=== PATIENT | female | born 1980 | race Caucasian/White ===

== ENCOUNTER 2016-06-29 02:04 | Emergency (ER) | payer OTHER ==
[~2016-06-29 02:04] MED LIST: ACETAMINOPHEN500 M4 PO; ALBUTEROL17 GM INH; ALPRAZOLAM PO; AMITRYPTYLINE PO; AMOXICILLIN PO; AMOXICILLIN500 M1 PO; CLONAZEPAM0.5 MG PO; FIBERCON625 MG PO; FLEXERIL PO; FLEXERIL10 MG PO; IBUPROFEN PO; MAGIC MOUTHWASH; METHADONE PO; MOBIC PO; NAPROSYN500 MG PO; NIX59 ML TOP; NO MEDICATIONS; NON COMPLIANT; ORTHO TRI-7 DAYS X PO; OXYCONTIN20 MG; OYSTER CALCIUM500 MG PO; PHENERGAN25 MG PO; PREDNISONE PO; PRENATAL MULITV1 TAB PO; VIBRAMYCIN100 M1 PO; VICODIN 5/1 TAB 5/50 PO; VISTARIL PO; ZITHROMAX PO; ZOLOFT PO; ZYRTEC PO
== END 2016-06-29 02:06 | disposition home or self-care (01) ==
LOC: CED 02:04
DX: K08.89 Other specified disorders of teeth and supporting structures (principal); I10 Essential (primary) hypertension; B19.20 Unspecified viral hepatitis C without hepatic coma; D64.9 Anemia, unspecified; F41.9 Anxiety disorder, unspecified; F17.210 Nicotine dependence, cigarettes, uncomplicated
CPT/HCPCS: 64400; 99283

== ENCOUNTER 2016-07-16 22:46 | Emergency (ER) | payer OTHER | END 2016-07-16 23:53 | disposition LSLMPD | LOC: SED 22:46 | DX: T42.4X1A Poisoning by benzodiazepines, accidental (unintentional), initial encounter (principal); F17.200 Nicotine dependence, unspecified, uncomplicated | CPT/HCPCS: 96372; 99283 ==

== ENCOUNTER 2016-10-07 18:08 | Emergency (ER) | payer OTHER ==
[~2016-10-07] VITALS: Ht 162.6 cm; Wt 77.1 kg
== END 2016-10-07 21:53 | disposition home or self-care (01) ==
LOC: CED 18:08
DX: T40.1X1A Poisoning by heroin, accidental (unintentional), initial encounter (principal); E11.9 Type 2 diabetes mellitus without complications; K75.9 Inflammatory liver disease, unspecified; F17.200 Nicotine dependence, unspecified, uncomplicated
CPT/HCPCS: 96374; 99284; J2310